=== PATIENT | female | born 1990 | race Caucasian/White ===

== ENCOUNTER 2017-02-25 19:22 | Inpatient (IN) | payer OTHER, MEDICAID ==
[~2017-02-25] VITALS: Ht 154.9 cm; Wt 69.0 kg
[~2017-02-25 19:22] MED LIST: CEFD300C37 PO; IBUP-1222 PO; PREN1TAB56 PO
[2017-02-25] MEDS ORDERED: D5%-LACTATED RINGERS 1,000 ML IV SCH (19:38)
[2017-02-25] MEDS ORDERED: LACTATED RINGERS 1,000 ML IV SCH ×2 (19:38→20:42)
[2017-02-25] MEDS ORDERED: OXYTOCIN 30U/ 0.9% NaCL 500ML 500 ML IV ONE (19:38)
[2017-02-25] MEDS ORDERED: FENTANYL PF 100 MCG/2ML ONE (19:43)
[2017-02-25 19:54] VITALS: BP 111/59
[2017-02-25] MEDS ORDERED: TERBUTALINE 1 MG/ML, 1ML IVPush PRN (20:00)
[2017-02-25] MEDS ORDERED: FENTANYL PF 100 MCG/2ML IV PRN (20:00)
[2017-02-25] MEDS ORDERED: CALCIUM CARBONATE 500 MG TAB.CHEW PO PRN (20:00)
[2017-02-25] MEDS ORDERED: FENTANYL PF 100 MCG/2ML IVPush PRN (20:00)
[2017-02-25] MEDS ORDERED: ONDANSETRON 2MG/ML, 2ML IVPush PRN (20:00)
[2017-02-25] MEDS ORDERED: FENTANYL/BUPIV./NS/PF 250 ML EPIDCONT ONE (20:18)
[2017-02-25] MEDS ORDERED: LIDOCAINE/PF 1.5%-EPI 1:200K, 30ML ONE (20:18)
[2017-02-25] MEDS ORDERED: FENTANYL/BUPIV./NS/PF 250 ML EPIDCONT SCH (20:42)
[2017-02-25] MEDS ORDERED: LACTATED RINGERS 1,000 ML IVBOLUS PRN (21:00)
[2017-02-25] MEDS ORDERED: OXYTOCIN 30U/ 0.9% NaCL 500ML 500 ML ONE (21:05)
[2017-02-25] MEDS ORDERED: MISOPROSTOL 200 MCG TABLET ONE (21:06)
[2017-02-25] MEDS ORDERED: LIDOCAINE/MPF 2%-EPI 1:200K, 20 ML ONE (21:07)
[2017-02-26] MEDS: OXYTOCIN 30U/ 0.9% NaCL 500ML 500 ML IV SCH ×3 (00:13→20:13)
[2017-02-26] MEDS ORDERED: MISOPROSTOL 200 MCG TABLET PR PRN (00:30)
[2017-02-26] MEDS ORDERED: RHOGAM FROM BLOOD BANK 1 NOTE EA IM/IV ONE (00:30)
[2017-02-26] MEDS ORDERED: CALCIUM CARBONATE 500 MG TAB.CHEW PO PRN (00:30)
[2017-02-26] MEDS ORDERED: ACETAMINOPHEN 325 MG TABLET PO PRN (00:30)
[2017-02-26] MEDS ORDERED: METHYLERGONOVINE 0.2 MG/ML IM PRN (00:30)
[2017-02-26] MEDS ORDERED: CARBOPROST TROMETHAMINE 250 MCG/ML, 1ML IM PRN (00:30)
[2017-02-26] MEDS ORDERED: ONDANSETRON 2MG/ML, 2ML IV PRN (00:30)
[2017-02-26] MEDS ORDERED: IBUPROFEN 600 MG TABLET ONE (01:07)
[2017-02-26] MEDS: IBUPROFEN 600 MG TABLET PO PRN ×4 (01:10→19:33)
[2017-02-26 02:15] VITALS: BP 97/52
[2017-02-26 05:40] VITALS: BP 97/48
[2017-02-26 07:30] VITALS: BP 95/53
[2017-02-26] MEDS: DOCUSATE 100 MG CAPSULE PO PRN ×2 (08:39→19:33)
[2017-02-26] MEDS: PRENATAL VIT/IRON/FA 1 EACH TABLET PO SCH (08:40)
[2017-02-26] MEDS: HYDROcodone/APAP 5/325 TABLET PO PRN ×3 (08:40→19:33)
[2017-02-26 11:50] VITALS: BP 90/55
[2017-02-26 16:35] VITALS: BP 95/61
[2017-02-26 20:00] VITALS: BP 90/50
[2017-02-27 05:00] VITALS: BP 106/58
[2017-02-27] MEDS: OXYTOCIN 30U/ 0.9% NaCL 500ML 500 ML IV SCH (06:13)
[2017-02-27] MEDS: IBUPROFEN 600 MG TABLET PO PRN (06:20)
[2017-02-27] MEDS: HYDROcodone/APAP 5/325 TABLET PO PRN (06:20)
[2017-02-27 08:02] VITALS: BP 96/56
[2017-02-27] MEDS: PRENATAL VIT/IRON/FA 1 EACH TABLET PO SCH (09:17)
[2017-02-27] MEDS: DOCUSATE 100 MG CAPSULE PO PRN (09:17)
[2017-02-27] MEDS ORDERED: HYDR-3240 PO (11:28)
[2017-02-27] MEDS ORDERED: IBUP-1222 PO (11:30)
[2017-02-27] MEDS ORDERED: DOCU-30 PO (11:30)
== END 2017-02-27 14:07 | disposition home or self-care (01) | DRG 775 ==
LOC: LDOP 19:22 → LDIP 19:42 → 2NW 02-26 02:16
PROVIDERS: ADMIT Obstetrics & Gynecology; ATTEND Obstetrics & Gynecology
PROC: 10E0XZZ Delivery of Products of Conception, External Approach (ICD-10-PCS; principal; 2017-02-25)
PROC: 10907ZC Drainage of Amniotic Fluid, Therapeutic from Products of Conception, Via Natural or Artificial Opening (ICD-10-PCS; 2017-02-25)
PROC: 00HU33Z Insertion of Infusion Device into Spinal Canal, Percutaneous Approach (ICD-10-PCS; 2017-02-25)
PROC: 3E0R3CZ (ICD-10-PCS; 2017-02-25)
DX: O69.81X0 Labor and delivery complicated by cord around neck, without compression, not applicable or unspecified (principal); Z37.0 Single live birth; Z3A.38 38 weeks gestation of pregnancy
CPT/HCPCS: 36415; 85025; 86850; 86900; J3490; J2590; J7120